=== PATIENT | female | born 1930 | race Caucasian/White ===

== ENCOUNTER → 2017-05-19 | Outpatient (CLI) | payer MEDICARE, OTHER | END | disposition home or self-care (01) | LOC: PCVCCLINIC 12:49 | DX: I48.2 Chronic atrial fibrillation (principal); I34.1 Nonrheumatic mitral (valve) prolapse; I27.29 Other secondary pulmonary hypertension; I10 Essential (primary) hypertension; E78.2 Mixed hyperlipidemia; R94.31 Abnormal electrocardiogram [ECG] [EKG]; Z79.01 Long term (current) use of anticoagulants; Z79.899 Other long term (current) drug therapy | CPT/HCPCS: 93005; G0463 ==

== ENCOUNTER → 2017-11-17 | Outpatient (CLI) | payer MEDICARE, OTHER | END | disposition home or self-care (01) | LOC: PCVCCLINIC 13:25 | DX: R94.31 Abnormal electrocardiogram [ECG] [EKG] (principal) | CPT/HCPCS: 93005 ==

== ENCOUNTER → 2018-05-20 | Outpatient (CLI) | payer MEDICARE, OTHER | END | disposition home or self-care (01) | LOC: PCVCCLINIC 14:47 | PROVIDERS: ATTEND Internal Medicine | DX: I48.2 Chronic atrial fibrillation (principal); I34.1 Nonrheumatic mitral (valve) prolapse; I27.29 Other secondary pulmonary hypertension; I10 Essential (primary) hypertension; J44.9 Chronic obstructive pulmonary disease, unspecified; Z79.01 Long term (current) use of anticoagulants | CPT/HCPCS: 36415; 80061; 93005; G0463 ==

== ENCOUNTER → 2018-05-27 | Outpatient (CLI) | payer MEDICARE, OTHER ==
--- NOTE | 2018-05-30 09:08 | PCVCIMAG ---
APPROVED REPORT Study performed: 05/27/2018 15:54:10 EXAM: Comprehensive 2D, Doppler, and color-flow Echocardiogram Patient Location: Echo lab Room #: 2Status: routine BSA: 1.76 HR: 63 bpmBP: 126/88 mmHg Rhythm: Atrial Fibrillation Other Information Study Quality: Adequate Risk Factors: Cardiac Risk Factors: HTN, Hyperlipidemia Indications Pulmonary Hypertension Atrial Fibrillation Hypertension/HDD 2D Dimensions IVSd: 10.46 (7-11mm)LVOT Diam: 20.59 (18-24mm) LVDd: 42.00 mm PWd: 7.48 (7-11mm)Ascending Ao: 29.84 (22-36mm) LVDs: 25.31 (25-40mm) Left Atrium: 43.53 (27-40mm) Aortic Root: 19.52 mm LV Single Plane 4CH: 45.40 % LV Single Plane 2CH: 46.19 % Biplane EF: 46.1 % Volumes Left Atrial Volume (Systole) Single Plane 4CH: 102.28 mLSingle Plane 2CH: 67.42 mL Biplane LA Volume: 91.00 mLLA ESV Index: 52.00 mL/m2 Aortic Valve AoV Peak Nate.: 0.95 m/s AO Peak Gr.: 4.07 mmHgLVOT Max P.17 mmHg LVOT Max V: 0.45 m/s SONALI Vmax: 1.58 cm2 Mitral Valve MV E Max Nate.: 0.97 m/s MV Max Nate.: 5.37 m/s MV Mean Nate.: 4.14 m/s MV PHT: 59.13 ms MVA (PHT): 3.72 cm2 IVRT: 87.66 ms TDI E/Lateral E': 6.06E/Medial E': 12.13 Medial E' Nate.: 0.08 m/s Lateral E' Nate.: 0.16 m/s Pulmonary Valve PV Peak Nate.: 0.70 m/sPV Peak Gr.: 2.01 mmHg Tricuspid Valve TR Peak Nate.: 3.91 m/s TR Peak Gr.: 61.02 mmHg TV Vmax: 0.84 m/sPA Pressure: 68.00 mmHg Left Ventricle The left ventricle is normal size. There is normal LV segmental wall motion. There is normal left ventricular wall thickness. The left ventricular systolic function is normal. The left ventricular ejection fraction is within the normal range. LVEF is 55%. This study is not technically sufficient to allow evaluation of the LV diastolic function due to atrial fibrillation. Right Ventricle The right ventricle is normal size. The right ventricular systolic function is normal. Atria Left atrium is severely dilated. Right atrium is severely dilated. Aortic Valve Aortic valve is trileaflet, mildly sclerotic. No aortic regurgitation is present. There is no aortic valvular stenosis. Mitral Valve Posterior mitral valve leaflet is redundant, mild prolapse Moderate to moderately severe mitral regurgitation. No evidence of mitral valve stenosis. Moderate prolapse of the posterior mitral valve leaflet. Tricuspid Valve The tricuspid valve is normal in structure. Moderate tricuspid regurgitation with a PA pressure of 65 mmHg. Moderate pulmonary hypertension. Pulmonic Valve The pulmonary valve is normal in structure. There is no pulmonic valvular regurgitation. Great Vessels The aortic root is normal in size. The ascending aorta is normal in size. Aortic arch is normal in caliber. IVC is normal in size and collapses >50% with inspiration. Pericardium There is no pericardial effusion. There is no pleural effusion. <Conclusion> The left ventricular systolic function is normal. There is normal LV segmental wall motion. LVEF is 55%. Both atria are severely dilated. Aortic valve is trileaflet, mildly sclerotic. No aortic regurgitation or stenosis Posterior mitral valve leaflet is redundant, mild prolapse. Moderate to moderately severe mitral regurgitation. Moderate tricuspid regurgitation with a pulmonary artery pressure of 65 mmHg. There is no pericardial effusion. Similar to a study dated April 2016
== END | disposition home or self-care (01) ==
LOC: PCVCIMAG 05-26 10:23
PROVIDERS: ATTEND Internal Medicine
DX: I48.91 Unspecified atrial fibrillation (principal); I08.1 Rheumatic disorders of both mitral and tricuspid valves; I10 Essential (primary) hypertension; I27.20 Pulmonary hypertension, unspecified; E78.5 Hyperlipidemia, unspecified
CPT/HCPCS: 93306